=== PATIENT | female | born 1980 | race Caucasian/White ===

== ENCOUNTER 2020-09-26 21:28 | Emergency (ER) | payer OTHER ==
[~2020-09-26] VITALS: Ht 154.9 cm; Wt 85.0 kg
[2020-09-26] MEDS ORDERED: predniSONE 20 MG TABLET PO ONE (22:00)
[2020-09-26] MEDS ORDERED: diphenhydrAMINE HCL 25 MG CAPSULE PO ONE (22:00)
--- NOTE | 2020-09-26 22:02 | PHYS DOC ---
Past History Past Surgical History: General Adult EDM: Chief Complaint: ALLERGIC REACTION HPI: HPI: 40-year-old female presents with concern for allergic reaction. She was eating trail mix which she has eaten multiple times in the past when she had sudden swelling of the left, lower, posterior jaw area. She also had some feeling of numbness across her cheek and like she had swelling inside that part of her mouth. This was concerning so she came to the ER. She has no known allergies. The swelling has improved significantly by the time she got here. She still has some mild, central facial numbness that she describes as decreased sensation. She denies shortness of breath or difficulty swallowing. She has never had anything like this before. Review of Systems: Review of Systems: Constitutional: Denies fever or chills Eyes: Denies change in visual acuity HENT: Left facial swelling Respiratory: Denies cough or shortness of breath Cardiovascular: Denies chest pain or edema GI: Denies abdominal pain, nausea, vomiting, bloody stools or diarrhea : Denies dysuria Musculoskeletal: Denies back pain or joint pain Integument: Denies rash Neurologic: Denies headache, focal weakness or sensory changes Endocrine: Denies polyuria or polydipsia Lymphatic: Denies swollen glands Psychiatric: Denies depression or anxiety Allergies: Allergies: Allergies Coded Allergies Type Severity Reaction Last Updated Verified No Known Drug Allergies 09/26/20 No Physical Exam: PE: Constitutional: Well developed, well nourished, obese, no acute distress, non- toxic appearance. [] HENT: Normocephalic, atraumatic, bilateral external ears normal, oropharynx moist, no oral exudates, nose normal. [] Eyes: PERRLA, EOMI, conjunctiva normal, no discharge. [] Neck: Normal range of motion, no tenderness, supple, no stridor. [] Cardiovascular:Heart rate regular rhythm, no murmur [] Lungs & Thorax: Bilateral breath sounds clear to auscultation [] Abdomen: Bowel sounds normal, soft, no tenderness, no masses, no pulsatile masses. [] Skin: Warm, dry, no erythema, no rash. [] Back: No tenderness, no CVA tenderness. [] Extremities: No tenderness, no cyanosis, no clubbing, ROM intact, no edema. [] Neurologic: Alert and oriented X 3, normal motor function, normal sensory funct ion, no focal deficits noted. [] Psychologic: Affect normal, judgement normal, mood normal. [] Current Patient Data: Vital Signs: Vital Signs Date Time Temp Pulse Resp B/P (MAP) Pulse Ox O2 Delivery O2 Flow Rate FiO2 09/26/20 21:36 99.4 83 18 156/78 98 Room Air EKG: EKG: [] Radiology/Procedures: Radiology/Procedures: [] Heart Score: C/O Chest Pain: N/A Risk Factors: Risk Factors: DM, Current or recent (<one month) smoker, HTN, HLP, family history of CAD, obesity. Risk Scores: Score 0 - 3: 2.5% MACE over next 6 weeks - Discharge Home Score 4 - 6: 20.3% MACE over next 6 weeks - Admit for Clinical Observation Score 7 - 10: 72.7% MACE over next 6 weeks - Early Invasive Strategies Course & Med Decision Making: Course & Med Decision Making Pertinent Labs and Imaging studies reviewed. (See chart for details) The patient's face might be slightly more swollen on the left than the right but I cannot appreciate any prominent or tender nodules. Her airway is open with no signs of swelling. Out out of an abundance of caution I will give her 25 mg of Benadryl and 60 mg of prednisone p.o. This might have been a parotid or submandibular salivary gland stone that rapidly cleared. The patient will avoid the food that she ate when this occurred. She is stable for discharge at this time. [] Miguel Ángelon Disclaimer: [place] Disclaimer: This electronic medical record was generated, in whole or in part, using a voice recognition dictation system. Departure Departure: Impression: Primary Impression: Left facial swelling Disposition: HOME / SELF CARE / HOMELESS Condition: STABLE Referrals: RAFFI KESSLER (PCP) Patient Instructions: Food Allergy, [id number] NEDA GARSIA DO Sep 26, 2020 22:02
[2020-09-26 22:45] VITALS: BP 110/71
== END 2020-09-26 22:42 | disposition home or self-care (01) ==
LOC: ER 21:28
DX: R22.0 Localized swelling, mass and lump, head (principal); R20.0 Anesthesia of skin
CPT/HCPCS: 99283; J7512; Q0163